=== PATIENT | male | born 2000 | race Caucasian/White ===

== ENCOUNTER 2021-05-08 21:15 | Emergency (ER) | payer OTHER ==
[2021-05-08 22:32] LABS: HEMOGLOBIN 15.4 gm/dl (14.0-17.5); RED BLOOD COUNT 5.35 M/UL (4.20-5.50); WHITE BLOOD COUNT 7.8 K/UL (4.5-11.0)
[2021-05-08 22:52] LABS: BUN/CREATININE RATIO 8 (0-10)
[2021-05-09] MEDS ORDERED: IBUPROFEN600 MG PO (00:50)
[2021-05-09] MEDS ORDERED: ZOFRAN ODT 4 MG4 MG PO (00:50)
[2021-05-09] MEDS ORDERED: BENTYL 20MG TAB20 MG PO (00:50)
== END 2021-05-09 00:55 | disposition home or self-care (01) ==
LOC: ER1 21:15 → EDBD 21:15 → ER1 05-09 00:55
PROVIDERS: Physician Assistant
DX: R10.811 Right upper quadrant abdominal tenderness (principal); R11.0 Nausea; R19.7 Diarrhea, unspecified; F17.290 Nicotine dependence, other tobacco product, uncomplicated; Z20.822 Contact with and (suspected) exposure to COVID-19
CPT/HCPCS: 0240U; 71045; 80053; 81001; 83605; 83735; 84100; 85025; 85610; 85652; 85730; 86140; 87040; 87081; 87086; 87880; 99284; Q9967